=== PATIENT | female | born 1945 | race African-American/Black ===

== ENCOUNTER → 2017-09-02 | Outpatient (CLI) | payer MEDICARE ==
[~2017-09-02] MED LIST: ALPR.25 PO; AMBI10TA PO; ASPI-183 PO; BACL10TA PO; CIPR750 PO; CYAN1000P IM; FOLI800T PO; GABA300C3 PO; GABA300C5 PO; GLUCTAB OR; HCTZ25 PO; HYDR-3129 PO; HYDR1SOL6 PO; HYDR25TA5 PO; KCL20 PO; LACT PO; LOSA100T2 PO; LOVA20TA PO; METF500T4 PO; POLY17S PO; PRIL20CA PO; PRIL20TA2 PO; VICT18IN SQ; VITA100018 PO; VITA10002 PO; WARF6 PO
[2017-09-02 09:51] LABS: HEMATOCRIT 40.1 % (35.0-46.0); MEAN CELL VOLUME 94.7 FL (80.0-100.0); MEAN CORPUSCULAR HEMOGLOBIN 31.3 PG (27.0-34.0); MEAN CORPUSCULAR HGB CONC 33.1 % (32.0-36.0); PLATELET COUNT 262 TH/MM3 (150-450); RED BLOOD COUNT 4.23 MIL/MM3 (4.00-5.30); RED CELL DISTRIBUTION WIDTH 13.6 % (11.6-17.2); REVIEW FLAG FINAL; WHITE BLOOD COUNT 6.3 TH/MM3 (4.0-11.0)
[2017-09-02 10:01] LABS: APTT (PATIENT) 27.3 SEC (24.3-30.1); INTERNATIONAL NORMALIZED RATIO 0.9 RATIO; PROTHROMBIN TIME - PATIENT 10.3 SEC (9.8-11.6)
[2017-09-02 10:02] LABS: BACTERIA, URINE MOD /hpf; BLOOD, URINE NEG (NEG); COMMENT (UR) CATH-CULTURE IND; CULTURE IF INDICATED CATH CULTURE IND; GLUCOSE,URINE NEG (NEG); KETONE, URINE NEG (NEG); MUCUS URINE FEW /lpf (OCC); NITRITE,URINE NEG (NEG); SQUAMOUS EPITHELIAL CELL URINE 11 /hpf (0-5); URINE COLOR YELLOW (YELLW/STRAW)
[2017-09-02 10:16] LABS: ANION GAP 7 MEQ/L (5-15); AST (GOT) 24 U/L (15-37); BICARBONATE 31.3 MEQ/L (21.0-32.0); BLOOD UREA NITROGEN 13 MG/DL (7-18); CHLORIDE 101 MEQ/L (98-107); GLOMERULAR FILTRATION RATE 70 ML/MIN (>89); GLUCOSE,FASTING 143 MG/DL (74-99); POTASSIUM 3.1 MEQ/L (3.5-5.1); SODIUM (NA) 139 MEQ/L (136-145)
[2017-09-02 10:22] LABS: ALKALINE PHOSPHATASE 77 U/L (45-117); ALT (GPT) 29 U/L (10-53); TOTAL BILIRUBIN ADULT 0.5 MG/DL (0.2-1.0)
== END ==
LOC: CPRE 08:11
PROVIDERS: ATTEND Surgery
DX: Z01.812 Encounter for preprocedural laboratory examination (principal); Z79.01 Long term (current) use of anticoagulants; Z51.81 Encounter for therapeutic drug level monitoring; R82.90 Unspecified abnormal findings in urine
CPT/HCPCS: 36415; 80053; 81001; 85027; 85610; 85730; 87086

== ENCOUNTER 2017-09-15 08:00 | Inpatient (IN) | payer MEDICARE ==
--- NOTE | 2017-09-09 10:10 | MH ---
cc: Tray TORRES M.D. DATE OF ADMISSION: 09/17/2017 ADMISSION DIAGNOSIS Osteoarthritic degeneration left knee, now being admitted for left total knee arthroplasty. ADMISSION HISTORY AND PHYSICAL This pleasant 72-year-old diabetic female is being admitted today for left total knee arthroplasty due to severe painful osteoarthritic degeneration left knee. OTHER PAST HISTORY The patient has a history of: 1. Chronic kidney disease, stage II. 2. Essential primary hypertension. 3. Type 2 diabetes mellitus. CURRENT MEDICATIONS Include: 1. Victoza. 2. Lovastatin. 3. Ambien. 4. Metformin. 5. Gabapentin. She stopped the Mobic before surgery. PAST SURGERIES She has had a right total knee arthroplasty in the past. REVIEW OF SYSTEMS Noncontributory. FAMILY HISTORY Noncontributory. SOCIAL HISTORY She does not smoke, does not drink alcohol. ALLERGIES No known allergies. PHYSICAL EXAMINATION GENERAL: We find a 72-year-old female, well-developed, well-nourished, alert and oriented x3, complaining of pain in her left knee. VITAL SIGNS: Blood pressure 128/72, pulse 70 and regular, respirations 18, temperature 97.9, pulse oximetry 97% on room air. HEENT: Eyes PERRLA, EOMI. Ears, nose, mouth clear. NECK: Supple. LUNGS: Clear. HEART: Regular rate. ABDOMEN: Soft. Positive bowel sounds, nontender. EXTREMITIES: The left knee has genu valgus deformity and lacks 5 degrees short of full extension. Otherwise, she is neurovascularly intact to her toes. IMPRESSION AT THIS TIME Severe painful osteoarthritic degeneration, left knee. PLAN Admission for left total knee arthroplasty today. The patient given a prescription for postoperative pain and anticoagulation control in the office. Understands to use Hibiclens scrub and Bactroban preoperatively and plans on going home after surgical stay in the hospital with home health care and physical therapy. MD RAYMOND Bond/TLL /10:00 AM /10:04 AM
[~2017-09-15] VITALS: Ht 175.3 cm; Wt 102.0 kg
[~2017-09-15 08:00] MED LIST changes: -ALPR.25 PO; -BACL10TA PO; -CIPR750 PO; -GABA300C3 PO; -GLUCTAB OR; -HCTZ25 PO; -HYDR-3129 PO; -KCL20 PO; -LACT PO; -POLY17S PO; -PRIL20CA PO; -WARF6 PO
[2017-09-17] MEDS ORDERED: CHLORHEXIDINE GLUCONATE 4% SOLN 120 ML BTL TOPICAL SCH (05:45)
[2017-09-17] MEDS ORDERED: LACTATED RINGER'S 1000 ML IV PRN (05:45)
[2017-09-17] MEDS ORDERED: ceFAZolin 2 GM PREMIX 50 ML IV SCH (05:45)
[2017-09-17] MEDS ORDERED: POVIDONE IODINE 5% (ANTISEPSIS KIT) 4 APPLICATIONS EACH NARE PRN (05:45)
[2017-09-17] MEDS ORDERED: VANCOMYCIN 1000 MG/NS 250 ML (for <70 kg) IV SCH ×2 (05:45)
[2017-09-17] MEDS ORDERED: METOPROLOL TARTRATE 25 MG TAB PO PRN (05:45)
[2017-09-17] MEDS ORDERED: EXPAREL PERI-ARTICULAR INJECTION (TOTAL VOL. 120 ML) P-ARTICULR SCH ×2 (05:45)
[2017-09-17] MEDS ORDERED: SODIUM CHLORIDE 0.9% IV SCH ×2 (05:45→10:00)
[2017-09-17] MEDS ORDERED: TRANEXAMIC ACID IV SCH ×2 (05:45→10:00)
[2017-09-17] MEDS ORDERED: SODIUM CHLORID 0.9% 500 ML IV PRN (05:45)
[2017-09-17] MEDS ORDERED: CHLORHEXIDINE GLUCONATE 2 % 1 PACK (2 CLOTHS) TOPICAL PRN (05:45)
[2017-09-17] MEDS ORDERED: DEXAMETHASONE SOD PHOS 20 MG/5 ML VIAL IV PUSH SCH (06:00)
[2017-09-17] MEDS ORDERED: ceFAZolin INJ 1,000 MG VIAL ONE (06:21)
[2017-09-17] MEDS ORDERED: ACETAMINOPHEN 1000 MG/100 ML 100 ML IV ONE (06:41)
[2017-09-17] MEDS ORDERED: BUPIVACAINE LIPOSOME PF 1.3% 20 ML VIAL ONE (07:03)
[2017-09-17] MEDS ORDERED: PROPOFOL 500 MG/50 ML INJ 0 ML ONE (07:04)
[2017-09-17] MEDS ORDERED: ZOLPIDEM TARTRATE 10 MG TAB PO PRN (07:15)
--- NOTE | 2017-09-17 07:22 | HHI.FF ---
Face to Face Verification Diagnosis: (1) Status post total left knee replacement Physical Therapy Gait training Knee: Total knee, Protocol: Left, Gait training, Full weight bearing Canvas Knee Splint: When in bed & 2 pillows btw thighs Nursing RN: 3 days/week x 2 weeks Nursing: Dressing changes Dressing Changes: Daily dressing change, 4x4s, Gauze, Paper tape I have seen patient Dolores Muñoz on 09/17/17. My clinical findings support the need for the requested home health care services because: Limited ability to care for self High risk of falls I certify that my clinical findings support that this patient is homebound because: Unsteady gait/balance Tray Peter MD Sep 17, 2017 07:22
[2017-09-17] MEDS ORDERED: CPMMACHINE (07:24)
[2017-09-17] MEDS ORDERED: WALKER WHEELS/F1 MIS (07:24)
[2017-09-17] MEDS ORDERED: ADJUSTABLE COMM1 MIS (07:24)
[2017-09-17] MEDS ORDERED: ONDANSETRON HCL 4 MG/2 ML VIAL IVP PRN (07:30)
[2017-09-17] MEDS ORDERED: TRANEXAMIC ACID INJ 0 MG in SODIUM CHLORIDE 0.9% INJ 100 ML IV SCH (07:30)
[2017-09-17] MEDS ORDERED: TEMAZEPAM 15 MG CAP PO PRN (07:30)
[2017-09-17] MEDS ORDERED: ACETAMINOPHEN 325 MG TAB PO PRN (07:30)
[2017-09-17] MEDS ORDERED: NALOXONE HCL 0.4 MG/ML AMP IV PUSH PRN (07:30)
[2017-09-17] MEDS ORDERED: diphenhydrAMINE HCL 50 MG/ML VIAL IV PUSH PRN (07:30)
[2017-09-17] MEDS ORDERED: TOBRAMYCIN 1200 MG VIAL (ortho-sterile core) ONE (07:54)
[2017-09-17] MEDS ORDERED: Post-op Orders (for Pharmacy) MISC XX ONE (08:00)
[2017-09-17] MEDS: GABAPENTIN 300 MG CAP PO SCH ×3 (09:00→17:25)
[2017-09-17] MEDS: FOLIC ACID 1 MG TAB PO SCH (09:00)
[2017-09-17] MEDS: CYANOCOBALAMIN 1,000 MCG TAB PO SCH (09:00)
[2017-09-17] MEDS: PANTOPRAZOLE SOD 20 MG DELAYED RELEASE TAB PO SCH (09:00)
[2017-09-17] MEDS: LOSARTAN 50 MG TAB PO SCH (09:00)
[2017-09-17] MEDS: PRAVASTATIN SOD 20 MG TAB PO SCH (09:00)
[2017-09-17] MEDS: metFORMIN HCL 500 MG TAB PO SCH ×2 (09:00→20:26)
[2017-09-17] MEDS ORDERED: VICTOZA 0.6 MG SQ SCH (09:00)
[2017-09-17] MEDS: HYDROCHLOROTHIAZIDE 25 MG TAB PO SCH (09:00)
[2017-09-17] MEDS: CHOLECALCIFEROL (VIT D3) 1000 UNIT TAB PO SCH (09:00)
[2017-09-17] MEDS ORDERED: DO NOT ADM ANY ANTICOAGULANT DRUGS PRN (11:15)
--- NOTE | 2017-09-17 11:16 | HHI.PR ---
Immediate Post Op Note Procedure Date: Sep 17, 2017 Pre Op Diagnosis: Osteoarthritic degeneration left knee Post Op Diagnosis: Severe Osteoarthritic degeneration left knee Surgeon: Tray Peter MD Utility Helicopter Repairer(s): Sandhya BUTLER Procedure: Left total Knee arthroplasty Complications: severe posterior osteophytes Specimen(s) removed: none Estimated blood loss: 200cc Anesthesia: General Drains: None IVF Urinary Output (mLs): 0 (no christina) Tourniquet time (min at mmHg) 96 minutes at 300mmHg Patient to: PACU Patient Condition: Good Implant/Devices: SEE IMPLANT LOG (if applicable) Date/Time of Procedure: SEE SURGICAL CARE RECORD Sandhya Durant Sep 17, 2017 11:16
[2017-09-17] MEDS ORDERED: *morphine SULFATE 8 MG/ML PERIprocedure ONLY ONE ×3 (11:17→11:36)
--- NOTE | 2017-09-17 11:26 | MP ---
cc: Tray PETER M.D. DATE OF SURGERY 09/17/2017 PREOPERATIVE DIAGNOSIS Osteoarthritic degeneration with valgus deformity left knee. POSTOPERATIVE DIAGNOSIS Osteoarthritic degeneration with valgus deformity left knee. SURGERY PERFORMED Left total knee arthroplasty using Consensus components with Bespoke protocol size 4 femur, 2 tibia, 2 patella, with two batches of DePuy cement and soft tissue balancing and lateral retinacular release. SURGEON Dr. Peter SENIOR CORPORATE ACCOUNTANT Batool Durant, LUKE PROCEDURE After successful induction of anesthesia, the patient is placed on the operating room table in the supine position. The knee is prepped and draped in the usual manner. A tourniquet is inflated at the upper thigh and set to 300 mmHg pressure after exsanguination of the lower extremity. A longitudinal incision is made extending from 3 inches proximal to the superior pole of the patella, across the patella in longitudinal fashion, and down past the insertion of the tibial tubercle into the proximal tibia. The incision is carried down through subcutaneous tissue along the medial aspect of the patella and retinaculum, down through the capsule to expose the knee joint. The patella and patellar tendon are freed up enough to allow the patella to be inverted and retracted off the lateral side of the knee joint. The knee joint is left exposed. Small osteophytes are removed. All soft tissue is removed to allow proper position of the femoral and tibial cutting jig guide. The first femoral jig is then inserted along the distal end of the femur after first measuring to decide whether this is a small, medium, or large component. The notch is then drilled and the tibial cutting guide inserted into the femoral cutting guide, along with the ankle brace to allow for proper measurement of the tibial cutting surface that needed to be resected. Pins are inserted into the tibial cutting jig and femoral cutting jig to hold them in place. An oscillating saw is then used to resect the surface of the tibia. The surface of the tibia is then completely removed using sharp and blunt dissection. The anterior and posterior cuts of the femur are then made as well using an oscillating saw through the cutting guide. All guides are then removed and the varus/valgus angulation cutting guide applied to the femur for proper measurement of the proper amount of valgus. The anterior cutting guide for the femur is then inserted at the anterior femoral cuts made. Next, the first block trial is inserted into the femur to allow for proper condyle drill holes to be made which are then made followed by removal of the bone between the condyles using an oscillating saw as well as the bone removed at the most posterior surface of the condyle. After this, this guide is removed and the chamfer cuts made using the chamfer cutting guide from both anterior and posterior. Next, the femoral trial is then inserted, the tibial surface reflected anterior to expose the tibial surface and a tibial stem guide is inserted after first measuring for a standard, standard plus, large, or large plus surface to be used. After the stem is impacted the trial tibial surface is applied followed by the trial meniscal components. After full range of motion is found with the appropriate length meniscal components varying the patella is prepared by resecting the posterior aspect of the patella using an oscillating saw, inserting a trial. The trial is then removed and the cruciate cutting guide applied using the bur to cut the cruciate cuts. After cruciate cuts are made all trials are removed. The wound is irrigated copiously with antibiotic solution and Water-Pik and the actual components inserted into place using Consensus components with Bespoke protocol size 4 femur, 2 tibia, 2 patella, with two batches of DePuy cement and soft tissue balancing and lateral retinacular release. After the cement has hardened and the components are found to have full range of motion with no instability, the tourniquet is deflated, total tourniquet time being 102 minutes at 300 mmHg pressure. An extra hour of surgical time was needed in this case due to soft tissue balancing by releasing the lateral collateral ligaments, the lateral retinacular release and doing a medial soft tissue plication using interrupted #1 Vicryl suture to stabilize the knee to prevent it returning to a valgus deformity. After soft tissue balancing was done, a full range of motion of the knee was appreciated with no instability and no medial compartment loosening or valgus deformity any longer. Meticulous hemostasis achieved. 120 cc of Exparel used around the knee joint for extra pain control. Deep fascia approximated with running #2 Quill. The subcutaneous tissue approximated with running and interrupted 2-0 and 3-0 Monocryl suture and Steri-Strips, a sterile dressing and knee immobilizer. No drain utilized. Estimated blood loss 200 cc. Sponge counts were correct. The patient tolerated the procedure well and left the operating room in satisfactory condition. Batool Durant, WHIPPED TOPPING FINISHER was present during the entire procedure to include patient positioning and the procedure. The medical necessity of the nurse practitioner first coat operator was indicated in this case due to the surgical complexity of the case itself. During the surgical case, the learning technologies specialist was working the back table while my care team assistant, LUKE, was directly assisting me. J. MD RAYMOND Villar/ALEC /10:37 AM /11:15 AM
[2017-09-17] MEDS: LACTATED RINGER'S 1000 ML INJ 1,000 ML IV SCH ×3 (11:32→23:27)
--- NOTE | 2017-09-17 12:21 | RADRPT ---
EXAM DATE/TIME: 09/17/2017 11:36 [facility] COMPARISON: No previous studies available for comparison. INDICATIONS : Post op left knee surgery MEDICAL HISTORY : None. SURGICAL HISTORY : None. ENCOUNTER: Initial ACUITY: 1 day PAIN SCORE: 6/10 LOCATION: Left knee FINDINGS: Postsurgical changes are noted following joint replacement. Prosthetic components appear to be well-s eated in satisfactory alignment. Bony structures are intact without evidence of fracture or dislocati on. CONCLUSION: Satisfactory postoperative appearance of left knee status post joint replacement. Elvis Hoffman MD on September 17, 2017 at 12:18 Board Certified Radiologist. This report was verified electronically.
--- NOTE | 2017-09-17 13:34 | PD.CONS ---
HPI Service [facility] Consult Requested By Dr. Peter Reason for Consult Medical management. Primary Care Physician Mateus Howell DO Diagnoses: (1) Osteoarthritis of left knee (2) Status post total left knee replacement (3) Diabetes mellitus (4) Hypertension (5) Hypercholesteremia History of Present Illness 72 year-old female with a medical history significant for hypertension, diabetes , osteoarthritis admitted for left knee arthroplasty. Patient reports significant history of a store arthritis involving the left knee. She failed standard medical therapy and is at the point where she required total knee replacement. Reviewed her medical history at length. Diabetes and hypertension has been controlled on her current medication regimen. Patient is seen postop. Pain is currently controlled. Review of Systems Musculoskeletal: COMPLAINS OF: Joint pain, Stiffness Except as stated in HPI: all other systems reviewed are Neg Past Family Social History Allergies: Coded Allergies: No Known Allergies (Unverified Allergy, Unknown, 09/17/17) Past Medical History hypertension, diabetes, osteoarthritis, hypercholesterolemia Past Surgical History Right knee replacement Fibroid resection Back surgery Reported Medications Reported Meds & Active Scripts Active Reported Cyanocobalamin Inj (Cyanocobalamin) 1,000 Mcg/Ml Inj 1,000 Mcg IM MONTHLY Hydrochlorothiazide 25 Mg Tab 25 Mg PO DAILY Prilosec (Omeprazole Magnesium) 20 Mg Tab 20 Tab PO DAILY Ambien (Zolpidem Tartrate) 10 Mg Tab 10 Mg PO HS PRN Metformin ER (Metformin HCl) 500 Mg Lanette 500 Mg PO DAILY With evening meal Lovastatin 20 Mg Tab 20 Mg PO DAILY Gabapentin 300 Mg Cap 300 Mg PO TID Vitamin D3 (Cholecalciferol) 1,000 Unit Tab 1,000 Units PO DAILY Folic Acid 0.8 Mg Tab 800 Mcg PO DAILY Vitamin B-12 (Cyanocobalamin) 1,000 Mcg Tab 1,000 Mcg PO DAILY Aspirin 325 Mg Tab 325 Mg PO DAILY Losartan-Hydrochlorothiazide 100-25 Mg Tab 1 Tab PO DAILY Victoza Inj (Liraglutide Inj) 18 Mg/3 Ml Pen 0.6 Mg SQ DAILY Hydrocodon-Acetamin 7.5-325/15 (Hydrocodone/Acetaminophen) 7.5 Mg-325 Mg/15 Ml ( 15 Ml) Solution 7.5 Tab PO TID Family History Reviewed and found to be noncontributory. Social History Patient does not use tobacco, alcohol, or illicit drugs. Physical Exam Vital Signs Vital Signs Date Time Temp Pulse Resp B/P (MAP) Pulse Ox O2 Delivery O2 Flow Rate FiO2 09/17/17 12:15 91 16 133/61 (85) 99 Nasal Cannula 2 09/17/17 12:00 86 13 122/58 (79) 100 Nasal Cannula 2 09/17/17 11:45 87 13 118/57 (77) 98 Nasal Cannula 2 09/17/17 11:30 88 12 117/56 (76) 98 Nasal Cannula 2 09/17/17 11:15 92 14 131/67 (88) 98 Nasal Cannula 2 09/17/17 11:07 97.5 100 17 161/72 (101) 98 Nasal Cannula 2 Physical Exam GENERAL: This is a well-nourished, well-developed patient, in no apparent distress. SKIN: No rashes, ecchymoses or lesions. Cool and dry. HEAD: Atraumatic. Normocephalic. No temporal or scalp tenderness. EYES: Pupils equal round and reactive. Extraocular motions intact. No scleral icterus. No injection or drainage. ENT: Nose without bleeding, purulent drainage or septal hematoma. Throat without erythema, tonsillar hypertrophy or exudate. Uvula midline. Airway patent. NECK: Trachea midline. No JVD or lymphadenopathy. Supple, nontender, no meningeal signs. CARDIOVASCULAR: Regular rate and rhythm without murmurs, gallops, or rubs. RESPIRATORY: Clear to auscultation. Breath sounds equal bilaterally. No wheezes , rales, or rhonchi. GASTROINTESTINAL: Abdomen soft, non-tender, nondistended. No hepato-splenomegaly , or palpable masses. No guarding. MUSCULOSKELETAL: Extremities without clubbing, cyanosis, or edema. No joint tenderness, effusion, or edema noted. No calf tenderness. Negative Homans sign bilaterally. NEUROLOGICAL: Awake and alert. Cranial nerves II through XII intact. Motor and sensory grossly within normal limits. Five out of 5 muscle strength in all muscle groups. Normal speech. Laboratory Laboratory Tests Test 09/17/17 06:10 Potassium Level 3.3 Result Diagram: 09/17/17 0610 Imaging Last Impressions Knee X-Ray 09/17/17 07 Signed Impressions: Service Date/Time: August 11:36 - CONCLUSION: Satisfactory postoperative appearance of left knee status post joint replacement. Elvis Hoffman MD Assessment and Plan Problem List: (1) Osteoarthritis of left knee ICD Code: M17.12 - Unilateral primary osteoarthritis, left knee (2) Status post total left knee replacement ICD Code: Z96.652 - Presence of left artificial knee joint (3) Hypertension ICD Code: I10 - Hypertension Status: Chronic (4) Diabetes mellitus ICD Code: E11.9 - Diabetes mellitus Status: Chronic (5) Hypercholesteremia ICD Code: E78.0 - Hypercholesterolemia Status: Chronic Assessment and Plan 72 year-old female with: Osteoarthritis of the left knee status post total knee arthroplasty: -Continue routine postop care per orthopedics - Pain control Hypertension: Continue home dose antihypertensives. Diabetes: Continue metformin and Victoza Hyperlipidemia: Continue statin. DVT prophylaxis: Eliquis per orthopedics. Marla Foreman MD Sep 17, 2017 13:34
[2017-09-17] MEDS: MORPHINE SULFATE 4 MG/ML INJ IV PUSH PRN (14:22)
[2017-09-17 15:00] VITALS: BP 121/69; PULSE 83; RESP 16; TEMP 97.4; O2SAT 95
[2017-09-17] MEDS: ACETAMINOPHEN/HYDROcodone 325 MG/7.5 MG TAB PO PRN ×2 (15:32→20:26)
[2017-09-17 16:00] VITALS: BP 122/61; PULSE 86; RESP 19; TEMP 98.5; O2SAT 98
[2017-09-17 16:35] VITALS: BP 122/61; PULSE 86; RESP 19; TEMP 98.5; O2SAT 98
[2017-09-17 20:50] VITALS: BP 136/68; PULSE 92; RESP 17; TEMP 99.7; O2SAT 98
[2017-09-18 00:18] VITALS: BP 116/71; PULSE 90; RESP 17; TEMP 99.5; O2SAT 98
[2017-09-18] MEDS: ACETAMINOPHEN/HYDROcodone 325 MG/7.5 MG TAB PO PRN ×5 (00:31→17:35)
[2017-09-18] MEDS: MORPHINE SULFATE 4 MG/ML INJ IV PUSH PRN (02:43)
[2017-09-18 04:55] VITALS: BP 110/56; PULSE 84; RESP 17; TEMP 97.6; O2SAT 97
[2017-09-18 05:44] LABS: HEMATOCRIT 32.1 % (35.0-46.0); REVIEW FLAG FINAL
[2017-09-18 08:31] VITALS: BP 124/58; PULSE 97; RESP 18; TEMP 99.8; O2SAT 93
[2017-09-18] MEDS: PANTOPRAZOLE SOD 20 MG DELAYED RELEASE TAB PO SCH (08:32)
[2017-09-18] MEDS: CYANOCOBALAMIN 1,000 MCG TAB PO SCH (08:32)
[2017-09-18] MEDS: HYDROCHLOROTHIAZIDE 25 MG TAB PO SCH (08:32)
[2017-09-18] MEDS: FOLIC ACID 1 MG TAB PO SCH (08:32)
[2017-09-18] MEDS: LOSARTAN 50 MG TAB PO SCH (08:33)
[2017-09-18] MEDS: metFORMIN HCL 500 MG TAB PO SCH ×2 (08:33→20:46)
[2017-09-18] MEDS: CHOLECALCIFEROL (VIT D3) 1000 UNIT TAB PO SCH (08:33)
[2017-09-18] MEDS: PRAVASTATIN SOD 20 MG TAB PO SCH (08:33)
[2017-09-18] MEDS: GABAPENTIN 300 MG CAP PO SCH ×3 (08:33→17:34)
[2017-09-18] MEDS: APIXABAN 2.5 MG TABLET PO SCH ×2 (10:02→20:46)
--- NOTE | 2017-09-18 11:06 | PD.ORT.PN ---
Subjective Subjective Remarks Patient having some pain in knee today. Objective Vitals Vital Signs Date Time Temp Pulse Resp B/P (MAP) Pulse Ox O2 Delivery O2 Flow Rate FiO2 09/18/17 08:31 99.8 97 18 124/58 (80) 93 09/18/17 04:55 97.6 84 17 110/56 (74) 97 09/18/17 00:18 99.5 90 17 116/71 (86) 98 09/17/17 20:50 99.7 92 17 136/68 (90) 98 09/17/17 16:35 98.5 86 19 122/61 (81) 98 09/17/17 16:00 98.5 86 19 122/61 (81) 98 09/17/17 15:00 97.4 83 16 121/69 (86) 95 09/17/17 12:55 98.8 87 14 136/65 (88) 98 Room Air 09/17/17 12:30 87 16 131/60 (83) 100 Room Air 09/17/17 12:15 91 16 133/61 (85) 99 Nasal Cannula 2 09/17/17 12:00 86 13 122/58 (79) 100 Nasal Cannula 2 09/17/17 11:45 87 13 118/57 (77) 98 Nasal Cannula 2 09/17/17 11:30 88 12 117/56 (76) 98 Nasal Cannula 2 09/17/17 11:15 92 14 131/67 (88) 98 Nasal Cannula 2 09/17/17 11:07 97.5 100 17 161/72 (101) 98 Nasal Cannula 2 I/O 09/17/17 09/17/17 09/17/17 09/18/17 09/18/17 09/18/17 07:00 15:00 23:00 07:00 15:00 23:00 Intake Total 2150 ml 680 ml 1420 ml Output Total 3600 ml Balance -1450 ml 680 ml 1420 ml Intake Oral 50 ml 480 ml 120 ml IV Total 2100 ml 200 ml 1300 ml Output Urine Total 400 ml Estimated Blood Loss 200 ml Other 3000 ml # Voids 3 2 # Bowel Movements 0 0 Result Diagram: 09/18/17 0426 09/17/17 0610 Imaging Last Impressions Knee X-Ray 09/17/17716 Signed Impressions: Service Date/Time: August 11:36 - CONCLUSION: Satisfactory postoperative appearance of left knee status post joint replacement. Elvis Hoffman MD Objective Remarks Dressing dry and intact. NV intact to toes. No calf tenderness. Laying in bed at present. Assessment & Plan Ortho Post Op Day #: 1 Problem List: Assessment and Plan PT, wound care. Home with C and PT tomorrow. Tray Peter MD Sep 18, 2017 11:06
[2017-09-18 12:00] VITALS: BP 107/70; PULSE 87; RESP 16; TEMP 99.3; O2SAT 100
[2017-09-18] MEDS ORDERED: MAGNESIUM HYDROXIDE SUSP 30 ML CUP PO PRN (12:00)
[2017-09-18] MEDS ORDERED: BISACODYL 10 MG SUPP RECTAL PRN (12:00)
--- NOTE | 2017-09-18 13:00 | HHI.PR ---
Subjective Remarks Patient reports she is feeling okay. Pain is controlled. Objective Vitals Vital Signs Date Time Temp Pulse Resp B/P (MAP) Pulse Ox O2 Delivery O2 Flow Rate FiO2 09/18/17 08:31 99.8 97 18 124/58 (80) 93 09/18/17 04:55 97.6 84 17 110/56 (74) 97 09/18/17 00:18 99.5 90 17 116/71 (86) 98 09/17/17 20:50 99.7 92 17 136/68 (90) 98 09/17/17 16:35 98.5 86 19 122/61 (81) 98 09/17/17 16:00 98.5 86 19 122/61 (81) 98 09/17/17 15:00 97.4 83 16 121/69 (86) 95 I/O 09/17/17 09/17/17 09/17/17 09/18/17 09/18/17 09/18/17 07:00 15:00 23:00 07:00 15:00 23:00 Intake Total 2150 ml 680 ml 1420 ml Output Total 3600 ml Balance -1450 ml 680 ml 1420 ml Intake Oral 50 ml 480 ml 120 ml IV Total 2100 ml 200 ml 1300 ml Output Urine Total 400 ml Estimated Blood Loss 200 ml Other 3000 ml # Voids 3 2 # Bowel Movements 0 0 Result Diagram: 09/18/17 0426 09/17/17 0610 Objective Remarks GENERAL: This is a well-nourished, well-developed patient, in no apparent distress. CARDIOVASCULAR: Normal rate and regular rhythm without murmurs, gallops, or rubs. RESPIRATORY: Good respiratory efforts. Breath sounds equal and clear to auscultation bilaterally. GASTROINTESTINAL: Abdomen soft, non-tender, non-distended. Normal active bowel sounds MUSCULOSKELETAL: Left knee postoperative dressing appeared clean and intact. Neurovascularly intact distally at the toes. NEURO: Alert & Oriented x4 to person, place, time, situation. Moves all ext x4 PSYCH: Appropriate mood and affect. A/P Problem List: (1) Osteoarthritis of left knee ICD Code: M17.12 - Unilateral primary osteoarthritis, left knee (2) Status post total left knee replacement ICD Code: Z96.652 - Presence of left artificial knee joint (3) Hypertension ICD Code: I10 - Hypertension Status: Chronic (4) Diabetes mellitus ICD Code: E11.9 - Diabetes mellitus Status: Chronic (5) Hypercholesteremia ICD Code: E78.0 - Hypercholesterolemia Status: Chronic Assessment and Plan 72 year-old female with: Osteoarthritis of the left knee status post total knee arthroplasty: -Continue routine postop care per orthopedics - Pain control - Continue physical therapy. Plan for discharge home with home health tomorrow per orthopedics. Hypertension: Continue home dose antihypertensives. Diabetes: Continue metformin and Victoza Hyperlipidemia: Continue statin. DVT prophylaxis: Eliquis per orthopedics. Marla Foreman MD Sep 18, 2017 13:00
[2017-09-18 16:00] VITALS: BP 94/48; PULSE 83; RESP 16; TEMP 98; O2SAT 97
[2017-09-18 19:00] VITALS: BP 97/55; PULSE 79; RESP 16; TEMP 98.9; O2SAT 95
[2017-09-18] MEDS: LACTATED RINGER'S 1000 ML INJ 1,000 ML IV SCH (20:46)
[2017-09-18] MEDS: MULTIVITAMINS/MINERALS THERAPEUTIC TAB PO SCH (20:46)
[2017-09-18] MEDS: DOCUSATE SODIUM 100 MG CAP PO SCH (20:46)
[2017-09-19] VITALS: BP 102/54; PULSE 82; RESP 17; TEMP 99.3; O2SAT 97
[2017-09-19] MEDS: ACETAMINOPHEN/HYDROcodone 325 MG/7.5 MG TAB PO PRN ×5 (01:18→16:10)
[2017-09-19 04:00] VITALS: BP 109/55; PULSE 88; RESP 16; TEMP 100; O2SAT 95
[2017-09-19 05:18] LABS: HEMATOCRIT 28.1 % (35.0-46.0); REVIEW FLAG FINAL
[2017-09-19 08:00] VITALS: BP 102/52; PULSE 82; RESP 18; TEMP 99.6; O2SAT 98
[2017-09-19] MEDS: CHOLECALCIFEROL (VIT D3) 1000 UNIT TAB PO SCH (08:04)
[2017-09-19] MEDS: MULTIVITAMINS/MINERALS THERAPEUTIC TAB PO SCH (08:04)
[2017-09-19] MEDS: metFORMIN HCL 500 MG TAB PO SCH (08:05)
[2017-09-19] MEDS: DOCUSATE SODIUM 100 MG CAP PO SCH (08:05)
[2017-09-19] MEDS: CYANOCOBALAMIN 1,000 MCG TAB PO SCH (08:05)
[2017-09-19] MEDS: PANTOPRAZOLE SOD 20 MG DELAYED RELEASE TAB PO SCH (08:05)
[2017-09-19] MEDS: PRAVASTATIN SOD 20 MG TAB PO SCH (08:05)
[2017-09-19] MEDS: GABAPENTIN 300 MG CAP PO SCH ×2 (08:05→12:09)
[2017-09-19] MEDS: APIXABAN 2.5 MG TABLET PO SCH (08:05)
[2017-09-19] MEDS: FOLIC ACID 1 MG TAB PO SCH (08:05)
[2017-09-19] MEDS: HYDROCHLOROTHIAZIDE 25 MG TAB PO SCH (08:12)
[2017-09-19] MEDS: LOSARTAN 50 MG TAB PO SCH (08:12)
--- NOTE | 2017-09-19 08:17 | HHI.PR ---
Subjective Remarks Patient reports she is feeling okay today. Pain is controlled. Due for discharge home today with home health care. Objective Vitals Vital Signs Date Time Temp Pulse Resp B/P (MAP) Pulse Ox O2 Delivery O2 Flow Rate FiO2 09/19/17 04:00 100.0 88 16 109/55 (73) 95 09/19/17 00:00 99.3 82 17 102/54 (70) 97 09/18/17 19:18 Room Air 09/18/17 19:00 98.9 79 16 97/55 (69) 95 09/18/17 16:00 98.0 83 16 94/48 (63) 97 09/18/17 12:00 99.3 87 16 107/70 (82) 100 09/18/17 08:31 99.8 97 18 124/58 (80) 93 I/O 09/18/17 09/18/17 09/18/17 09/19/17 09/19/17 09/19/17 07:00 15:00 23:00 07:00 15:00 23:00 Intake Total 1420 ml 600 ml 350 ml 240 ml Balance 1420 ml 600 ml 350 ml 240 ml Intake Oral 120 ml 600 ml 350 ml 240 ml IV Total 1300 ml # Voids 2 4 3 5 # Bowel Movements 0 0 0 0 Result Diagram: 09/19/17 0447 09/17/17 0610 Objective Remarks GENERAL: This is a well-nourished, well-developed patient, in no apparent distress. CARDIOVASCULAR: Normal rate and regular rhythm without murmurs, gallops, or rubs. RESPIRATORY: Good respiratory efforts. Breath sounds equal and clear to auscultation bilaterally. GASTROINTESTINAL: Abdomen soft, non-tender, non-distended. Normal active bowel sounds MUSCULOSKELETAL: Left knee postoperative dressing appeared clean and intact. Neurovascularly intact distally at the toes. NEURO: Alert & Oriented x4 to person, place, time, situation. Moves all ext x4 PSYCH: Appropriate mood and affect. A/P Problem List: (1) Osteoarthritis of left knee ICD Code: M17.12 - Unilateral primary osteoarthritis, left knee (2) Status post total left knee replacement ICD Code: Z96.652 - Presence of left artificial knee joint (3) Hypertension ICD Code: I10 - Hypertension Status: Chronic (4) Diabetes mellitus ICD Code: E11.9 - Diabetes mellitus Status: Chronic (5) Hypercholesteremia ICD Code: E78.0 - Hypercholesterolemia Status: Chronic Assessment and Plan 72 year-old female with: Osteoarthritis of the left knee status post total knee arthroplasty: -Continue routine postop care per orthopedics - Pain control - Continue physical therapy. Discharge home today with home health and physical therapy per orthopedics. Hypertension: Continue home dose antihypertensives. Diabetes: Continue metformin and Victoza Hyperlipidemia: Continue statin. DVT prophylaxis: Eliquis per orthopedics. Marla Foreman MD Sep 19, 2017 08:17
[2017-09-19] MEDS: LACTATED RINGER'S 1000 ML INJ 1,000 ML IV SCH (10:00)
[2017-09-19] MEDS ORDERED: BACITRACIN OINT 0.9 GM PKT TOP PRN (10:15)
[2017-09-19 10:41] VITALS: O2SAT 95
--- NOTE | 2017-09-19 11:17 | PD.ORT.PN ---
Subjective Subjective Remarks Patient having less pain in knee today. Objective Vitals Vital Signs Date Time Temp Pulse Resp B/P (MAP) Pulse Ox O2 Delivery O2 Flow Rate FiO2 09/19/17 10:41 95 21 09/19/17 08:00 99.6 82 18 102/52 (69) 98 09/19/17 04:00 100.0 88 16 109/55 (73) 95 09/19/17 00:00 99.3 82 17 102/54 (70) 97 09/18/17 19:18 Room Air 09/18/17 19:00 98.9 79 16 97/55 (69) 95 09/18/17 16:00 98.0 83 16 94/48 (63) 97 09/18/17 12:00 99.3 87 16 107/70 (82) 100 I/O 09/18/17 09/18/17 09/18/17 09/19/17 09/19/17 09/19/17 07:00 15:00 23:00 07:00 15:00 23:00 Intake Total 1420 ml 600 ml 350 ml 240 ml Balance 1420 ml 600 ml 350 ml 240 ml Intake Oral 120 ml 600 ml 350 ml 240 ml IV Total 1300 ml # Voids 2 4 3 5 # Bowel Movements 0 0 0 0 Result Diagram: 09/19/17 0447 09/17/17 0610 Imaging Last Impressions Knee X-Ray 09/17/17 0717 Signed Impressions: Service Date/Time: August 11:36 - CONCLUSION: Satisfactory postoperative appearance of left knee status post joint replacement. Elvis Hoffman MD Objective Remarks Dressing dry and intact. NV intact to toes. No calf tenderness. Sitting up in chair at present. Assessment & Plan Ortho Post Op Day #: 2 Problem List: Assessment and Plan PT, wound care. Home with HHC and PT today. Tray Peter MD Sep 19, 2017 11:17
--- NOTE | 2017-09-19 11:20 | HHI.DS ---
Discharge Summary Admission Date Sep 17, 2017 at 05:08 Discharge Date: Sep 19, 2017 Admitting Diagnosis Osteorthritic degeneration left knee Diagnosis: (1) Status post total left knee replacement Diagnosis: Principal ICD Codes: Z96.652 - Presence of left artificial knee joint Brief History This is a 72 year old female patient CBC/BMP: 09/19/17 0447 09/17/17 0610 Significant Findings Laboratory Tests Test 09/17/17 06:10 09/18/17 04:26 09/19/17 04:47 Potassium Level 3.3 MEQ/L (3.5-5.1) Hemoglobin 10.7 GM/DL (11.6-15.3) 9.6 GM/DL (11.6-15.3) Hematocrit 32.1 % (35.0-46.0) 28.1 % (35.0-46.0) PE at Discharge Dressing dry and intact. NV intact to toes. No calf tenderness. Sitting up in chair at present. Hospital Course Patient underwent a left total knee arthroplasty on day of admission. She received a course of prophylactic IV antibiotics and within 23 hours started on anticoagulation therapy. She continued to improve tolerating food and fluids well and was discharged on second postoperative day in good condition with instructions for home healthcare physical therapy and follow-up in the office. She tolerated by mouth pain meds and remained afebrile with temperatures less than 101. Pt Condition on Discharge: Good Discharge Disposition: Disch w/ Home Health Serv Discharge Instructions Diet Instructions: As Tolerated, No Restrictions Activities You Can Perform: Full Weight Bearing, Shower Only-No Bath Activities to Avoid: Bathing, Driving Tray Peter MD Sep 19, 2017 11:20
[2017-09-19 12:00] VITALS: BP 119/58; PULSE 76; RESP 18; TEMP 99.3; O2SAT 99
== END 2017-09-19 16:45 | disposition home health service (06) | DRG 470 ==
LOC: HSDI 09-17 05:08 → N06A 09-17 13:07
PROVIDERS: ADMIT Surgery; ATTEND Surgery
PROC: 0MNP0ZZ Release Left Knee Bursa and Ligament, Open Approach (ICD-10-PCS; 2017-09-17)
PROC: 0SRD0J9 Replacement of Left Knee Joint with Synthetic Substitute, Cemented, Open Approach (ICD-10-PCS; principal; 2017-09-17 07:17)
DX: M17.12 Unilateral primary osteoarthritis, left knee (principal); E11.22 Type 2 diabetes mellitus with diabetic chronic kidney disease; I12.9 Hypertensive chronic kidney disease with stage 1 through stage 4 chronic kidney disease, or unspecified chronic kidney disease; N18.2 Chronic kidney disease, stage 2 (mild); M21.062 Valgus deformity, not elsewhere classified, left knee; Z96.651 Presence of right artificial knee joint; E78.00 Pure hypercholesterolemia, unspecified; Z79.84 Long term (current) use of oral hypoglycemic drugs; Z79.01 Long term (current) use of anticoagulants
CPT/HCPCS: 73560; 76937; 82948; 84132; 85014; 85018; 86850; 86900; 86901; 94150; C1776; C9290; J0131; J0690; J1100; J2270; J3370; J7050; J7120; L1830